=== PATIENT | male | born 1975 | race African-American/Black ===

== ENCOUNTER 2017-08-22 00:12 | Emergency (ER) | END 2017-08-22 05:34 | disposition home or self-care (01) | DX: R07.89 Other chest pain (principal); D64.9 Anemia, unspecified; F17.210 Nicotine dependence, cigarettes, uncomplicated; I25.10 Atherosclerotic heart disease of native coronary artery without angina pectoris; R06.02 Shortness of breath; Z79.82 Long term (current) use of aspirin | CPT/HCPCS: 36415; 71010; 80048; 83880; 84484; 85025; 93005; Z7502; Z7610 ==